=== PATIENT | female | born 1980 | race Hispanic/Latino ===

== ENCOUNTER 2019-12-12 23:54 | Emergency (ER) | payer SELFPAY ==
--- NOTE | ~2019-12-12 | CT_ITS ---
EXAMINATION: CT abdomen pelvis w con INDICATION: Epigastric and right lower quadrant pain TECHNIQUE: Computed tomographic images of the abdomen and pelvis were obtained after the administrati on of 100 cc of Omnipaque 350 intravenous contrast. The dose-length product (DLP) was 212.94 mGy-cm. Automated exposure control and iterative reconstruction technique were employed. COMPARISON: 10/13/2015 FINDINGS: The lung bases are clear. The heart size is normal. The liver, spleen, pancreas, gallbladde r, and adrenal glands are normal. The kidneys are unremarkable. No pathologically enlarged abdominal or pelvic lymph nodes are identified. There is no free intraperitoneal gas or evidence of bowel obstr uction. The appendix is normal. A large volume of colonic stool is present. IMPRESSION: 1. No CT correlate for the patient's symptoms. Reviewed, dictated and finalized at location A.
[2019-12-12 23:59] VITALS: BP 140/86; PULSE 98; RESP 18; TEMP 37.6; O2SAT 98
--- NOTE | 2019-12-13 00:40 | ED.ABDPAIN ---
HPI - Abdominal Pain General Chief Complaint: Weakness Stated Complaint: weak Time Seen by Provider: 12/13/19 00:05 Source: patient Mode of arrival: ambulatory Limitations: language barrier ([employer] terminal operations manager service used) History of Present Illness HPI narrative: Patient is a 39-year-old female who presents to the emergency department with complaint of generalized weakness and abdominal pain. Patient states she has been feeling weak intermittently for the past week. Patient reports feelings of dizziness. Patient saw her primary care physician yesterday morning and was told her symptoms were due to allergies and she was put on allergy medication. Patient now reports development of epigastric and right lower abdominal pain, burning sensation in her back, and dysuria this been going on for approximately 6 hours. Patient reports nausea but denies any vomiting or diarrhea. She denies any fever, cough, or shortness of breath. MD elicited complaint: abdominal pain Onset (ago): hour(s) Pain Consistency: constant Location: epigastric and RLQ Associated symptoms: nausea and dysuria Related Data Allergies Allergy/AdvReac Type Severity Reaction Status Date / Time No Known Allergies Allergy Verified 12/13/19 04:40 Review of Systems Review of Systems: All systems reviewed & are unremarkable except as noted in HPI and below Constitutional: Constitutional: Denies fever(s) and Reports weakness Respiratory: Respiratory: Denies cough and Denies dyspnea Gastrointestinal: Gastrointestinal: Reports abdominal pain, Denies constipation, Denies diarrhea, Reports nausea and Denies vomiting Genitourinary: Genitourinary: Denies hematuria and Reports dysuria Musculoskeletal: Musculoskeletal: Reports back pain Neurologic: Reports dizziness and Reports weakness PMFSH Past Medical History Medical History (Updated 12/13/19 @ 04:38 by Saira Smith MD) GERD (gastroesophageal reflux disease) Surgical History Surgical History (Updated 12/13/19 @ 00:45 by Saira Smith MD) No history of previous surgery Social History Social History (Updated 12/13/19 @ 00:46 by Saira mSith MD) Smoking status: Never smoker Exam Const: General: cooperative, no acute distress and alert Nutritional Appearance: well nourished Orientation/consciousness: patient oriented x3 Limitations: no limitations HENMT: Mouth: Yes lip normal and Yes moist mucous membranes Resp: Effort & Inspection: normal respiratory effort Auscultation: clear to auscultation bilaterally Cardio: Rate: regular rate Rhythm: regular rhythm GI: GI Palp: Yes Soft to palpation and Yes Tenderness to palpation present (GI) (Diffuse, greatest in epigastric and right lower quadrant) Auscultation: normal bowel sounds : General: Yes CVA tenderness bilateral Skin: General skin exam: normal color Neuro: General: patient oriented x3 Cognition (Neuro): normal cognition Speech: normal speech Extrem: General: normal to inspection, full ROM and no clubbing, cyanosis or edema Psych: Mental Status: mental status grossly normal Affect: Blunted affect present Attitude: cooperative Course Course Emergency Course: Patient did not have much relief after Toradol and Zofran. She did get significant more relief with GI cocktail. CT scan and labs unremarkable for any acute findings. Will prescribe GI medications and advised follow-up with primary care. Vital Signs Vital signs: Vital Signs Temperature 99.7 F H 12/12/19 23:59 Pulse Rate 98 12/12/19 23:59 Respiratory Rate 18 12/12/19 23:59 Blood Pressure 140/86 12/12/19 23:59 Pulse Oximetry 98 12/12/19 23:59 Temperature 99.7 F H 12/12/19 23:59 Pulse Rate 98 12/12/19 23:59 Respiratory Rate 18 12/12/19 23:59 Blood Pressure 140/86 12/12/19 23:59 Pulse Oximetry 98 12/12/19 23:59 MDM - Abdominal Pain Medical Records Attestation: I reviewed the patient's medical records. Lab Da
[2019-12-13] MEDS: ONDANSETRON INJ 4 MG/2 ML VIAL IV PUSH (00:57)
[2019-12-13] MEDS: KETOROLAC 30 MG/ML VIAL (*BKC) IV PUSH (00:58)
[2019-12-13 01:02] LABS: Basophils Absolute Auto 0.1 K/mm3 (0.0-0.1); Eosinophils Absolute Auto 0.1 K/mm3 (0-0.3); Eosinophils Percent Auto 1.3 % (0-4.4); Hematocrit 43.9 % (37.0-47.0); Hemoglobin 13.8 g/dL (12.0-15.0); Immature Granulocyte Absolute 0.03 K/mm3 (0.00-0.031); Immature Granulocyte Percent A 0.3 % (0-0.5); Lymphocytes Absolute Auto 1.77 K/mm3 (0.9-3.2); Lymphocytes Percent Auto 17.5 % (18.3-44.2); Mean Corpuscular HGB Conc 31.4 g/dl (32-36); Mean Corpuscular Hemoglobin 29.1 pg (26-34); Mean Corpuscular Volume 92.4 fl (80-100); Monocytes Absolute Auto 0.8 K/mm3 (0.1-0.6); Monocytes Percent Auto 7.8 % (2.6-8.5); Neutrophils Absolute Auto 7.3 K/mm3 (1.3-6.7); Neutrophils Percent Auto 72.1 % (45.5-73.1); Platelet Count Result 247 k/mm3 (150-375); Red Blood Count 4.75 M/mm3 (4.2-5.4); Red Cell Distribution Width 12.9 % (11.5-14.5); White Blood Count 10.1 K/mm3 (4.5-10.0)
[2019-12-13 01:17] LABS: Alanine Aminotransferase 120 U/L (4-35); Albumin Level 4.2 g/dL (3.5-5.1); Alkaline Phosphatase 69 U/L (38-126); Aspartate Amino Transferase 99 U/L (14-36); Bilirubin,Total 0.4 mg/dL (0.2-1.3); Blood Urea Nitrogen 9 mg/dL (7-17); Carbon Dioxide 24 mmol/L (22-30); Chloride 102 mmol/L (98-107); Estimated Glomerular Filt Rate > 60; Glucose 105 mg/dL (65-105); Lipase 106 U/L (23-300); Potassium 3.5 mmol/L (3.4-5.0); Sodium 134 mmol/L (137-145)
[2019-12-13] MEDS: LACTATED RINGERS 1,000 ML 999 ML IV CONT (03:24)
[2019-12-13 04:04] LABS: Add Urine Microscopic? YES; Appearance Urine Clear (Clear); Bacteria Urine Trace /hpf; Bilirubin Urine Negative (Negative); Blood Urine 1+ (Negative); Color Urine Colorless (Yellow); Glucose Urine UA Negative (Negative); Ketones Urine Negative (Negative); Leukocyte Esterase Ur Negative LEU/UL (Negative); Mucus Urine Rare /lpf; Nitrate Urine Negative (Negative); Protein Urine Negative (Negative); Squamous Epithelial Cell Urine Moderate /hpf (Few); Urobilinogen Urine Negative mg/dL (<2.0); WBC Urine 0-3 /hpf
[2019-12-13 04:51] VITALS: BP 139/91; PULSE 78; RESP 16; O2SAT 98
[2019-12-13 05:03] VITALS: BP 139/91; PULSE 78; RESP 16; TEMP 37.2; O2SAT 98
== END 2019-12-13 04:45 | disposition home or self-care (01) ==
PROVIDERS: Emergency Provider Emergency Medicine
DX: R10.84 Generalized abdominal pain (principal); K21.9 Gastro-esophageal reflux disease without esophagitis
CPT/HCPCS: 36415; 74177; 80053; 81001; 81025; 83690; 85025; 96361; 96374; 96375; 99284; A9270; J1885; J2405; J7120; Q9967

== ENCOUNTER 2019-12-17 | Emergency (ER) | payer SELFPAY ==
--- NOTE | ~2019-12-17 | XR_ITS ---
EXAMINATION: XR chest 2V DATE: 12/17/2019 00:49 INDICATION: Cough. TECHNIQUE: Frontal and lateral views of the chest were obtained. COMPARISON: CT abdomen and pelvis 12/13/2019 FINDINGS: The chest demonstrates clear lungs without pneumonia, pleural effusion, or pneumothorax. Th e heart size is normal. IMPRESSION: 1. No acute cardiopulmonary disease. Reviewed, dictated and finalized at location A.
[2019-12-17 00:03] VITALS: BP 137/91; PULSE 109; RESP 25; TEMP 37.3; O2SAT 100
--- NOTE | 2019-12-17 00:22 | ED.ABDPAIN ---
HPI - Abdominal Pain General Chief Complaint: Abdominal Pain Stated Complaint: abd pain Time Seen by Provider: 12/17/19 00:21 History of Present Illness HPI narrative: Pt c/o epigastric pain, 6/10, aching, non radiating, started 1 week ago. Pt was seen here 4 days ago for the same complaints, had labs and ct scan of abd/pelvis, which showed nothing acute, labs within normal limits. Quality: cramping and aching Associated symptoms: denies other symptoms Related Data Allergies Allergy/AdvReac Type Severity Reaction Status Date / Time No Known Allergies Allergy Verified 12/13/19 04:40 Review of Systems Review of Systems: All systems reviewed & are unremarkable except as noted in HPI and below Constitutional: Constitutional: Denies body ache(s), Denies chills, Denies excessive sweating, Denies fatigue, Denies fever(s), Denies headache(s), Denies lethargy, Denies malaise, Denies weakness and Denies weight loss Eyes: Eyes: Denies blurry vision, Denies change in vision and Denies loss of vision ENT: Denies dizziness, Denies ear discharge, Denies headache(s), Denies lip swelling, Denies epistaxis, Denies nasal congestion, Denies neck pain, Denies throat swelling and Denies tongue swelling Cardiovascular: Cardiovascular: Denies chest pain, Denies chest pain at rest, Denies chest pain with activity, Denies diaphoresis, Denies rapid heart rate, Denies edema, Denies irregular heart rhythm, Denies lightheadedness, Denies palpitations, Denies dyspnea and Denies dyspnea on exertion Respiratory: Respiratory: Denies chest congestion, Denies cough, Denies hemoptysis, Denies dyspnea and Denies dyspnea on exertion Gastrointestinal: Gastrointestinal: Denies melena, Denies hematochezia, Denies diarrhea, Denies nausea, Denies vomiting and Denies hematemesis Musculoskeletal: Musculoskeletal: Denies abnormal gait, Denies deformity, Denies joint swelling, Denies limited range of motion, Denies neck pain and Denies numbness Neurologic: Denies Abnormal speech present, Denies abnormal gait, Denies confusion, Denies dizziness, Denies headache(s), Denies focal weakness, Denies loss of vision, Denies numbness, Denies Other visual disturbances, Denies Sensory deficit (Neuro) and Denies weakness Psychiatric: Psychiatric: Denies confusion, Denies depression, Denies auditory hallucinations, Denies homicidal ideation and Denies suicidal ideation Endocrine: Endocrine: Denies cold intolerance, Denies excessive sweating, Denies fatigue, Denies heat intolerance and Denies palpitations Hematologic/Lymphatic: Hematologic/Lymphatic: Denies easy bleeding and Denies easy bruising Allergic/Immunologic: Allergic/Immunologic: Denies lip swelling, Denies throat swelling and Denies tongue swelling PMFSH Past Medical History Medical History (Updated 12/17/19 @ 02:21 by James Saucedo MD) GERD (gastroesophageal reflux disease) Surgical History Surgical History (Updated 12/13/19 @ 00:45 by Saira Smith MD) No history of previous surgery Social History Social History (Updated 12/13/19 @ 00:46 by Saira Smith MD) Smoking status: Never smoker Gender identity (if verbalized by the patient): Female Exam Const: General: cooperative, healthy appearing, comfortable, no acute distress, well developed, alert and awake; No confusion Orientation/consciousness: oriented to person, oriented to place, oriented to time, patient oriented x3 and No confusion Limitations: no limitations HENMT: Head: normal to inspection, normocephalic and atraumatic Ears: hearing grossly normal bilaterally, TM normal on the right and TM normal on the left General nose exam: Normal external nose present, Normal nares present and No nasal discharge present Face and sinus: normal facial exam Mouth: Yes Normal oral and palatal mucosa present, Yes lip normal, Yes tongue normal and Yes oropharynx normal Throat: posterior oropharynx normal, tonsils normal and uvula midline Eyes:
--- NOTE | 2019-12-17 00:35 | ECG_ITS ---
Measurements Intervals [place] Rate: 82 P: 63 [place]: 157 QRS: 39 QRSD: 88 T: 35 QT: 379 QTc: 444 Interpretive Statements SINUS RHYTHM BASELINE WANDER- AVF NORMAL ECG Electronically Signed On 12-17-2019 7:21:14 CDT by Tevin Garsia D.O.
[2019-12-17 01:10] LABS: Basophils Absolute Auto 0.1 K/mm3 (0.0-0.1); Basophils Percent Auto 0.8 % (0.2-1.2); Eosinophils Absolute Auto 0.1 K/mm3 (0-0.3); Eosinophils Percent Auto 1.6 % (0-4.4); Hematocrit 39.4 % (37.0-47.0); Hemoglobin 13.9 g/dL (12.0-15.0); Immature Granulocyte Absolute 0.02 K/mm3 (0.00-0.031); Immature Granulocyte Percent A 0.3 % (0-0.5); Lymphocytes Absolute Auto 2.15 K/mm3 (0.9-3.2); Lymphocytes Percent Auto 28.7 % (18.3-44.2); Mean Corpuscular HGB Conc 35.3 g/dl (32-36); Mean Corpuscular Volume 82.1 fl (80-100); Mean Platelet Volume 10.8 fl (7.4-10.4); Monocytes Absolute Auto 0.7 K/mm3 (0.1-0.6); Monocytes Percent Auto 8.9 % (2.6-8.5); Neutrophils Absolute Auto 4.5 K/mm3 (1.3-6.7); Neutrophils Percent Auto 59.7 % (45.5-73.1); Platelet Count Result 293 k/mm3 (150-375); Red Cell Distribution Width 12.3 % (11.5-14.5); White Blood Count 7.5 K/mm3 (4.5-10.0)
[2019-12-17 01:33] LABS: Add Urine Microscopic? YES; Appearance Urine Cloudy (Clear); Bacteria Urine Trace /hpf; Bilirubin Urine Negative (Negative); Blood Urine Negative (Negative); Color Urine Yellow (Yellow); Glucose Urine UA Negative (Negative); Ketones Urine 1+ mg/dL (Negative); Leukocyte Esterase Ur Negative LEU/UL (Negative); Mucus Urine Moderate /lpf; Nitrate Urine Negative (Negative); Protein Urine Negative (Negative); Specific Grav Ur 1.013 (1.001-1.035); Squamous Epithelial Cell Urine Many /hpf (Few); Urobilinogen Urine Negative mg/dL (<2.0); WBC Urine 0-3 /hpf
[2019-12-17 01:42] LABS: Alanine Aminotransferase 108 U/L (4-35); Albumin Level 4.5 g/dL (3.5-5.1); Alkaline Phosphatase 66 U/L (38-126); Aspartate Amino Transferase 51 U/L (14-36); Bilirubin,Total 0.6 mg/dL (0.2-1.3); Blood Urea Nitrogen 9 mg/dL (7-17); Calcium 9.1 mg/dL (8.4-10.2); Carbon Dioxide 20 mmol/L (22-30); Chloride 104 mmol/L (98-107); Estimated Glomerular Filt Rate > 60; Glucose 98 mg/dL (65-105); Lipase 76 U/L (23-300); Potassium 3.3 mmol/L (3.4-5.0); Sodium 134 mmol/L (137-145); Troponin I < 0.012 ng/mL (0.000-0.034)
[2019-12-17] MEDS: BELLADONNA ALK/PHENOB ELIX 10 ML, MAG HYDROX/ALUMINUM HYD/SIMETH 30 ML, LIDOCAINE HCL 2... PO (01:47)
[2019-12-17 03:03] VITALS: BP 131/92; PULSE 81; RESP 17; O2SAT 98
== END 2019-12-17 03:05 | disposition home or self-care (01) ==
PROVIDERS: Emergency Provider Emergency Medicine
DX: K29.00 Acute gastritis without bleeding (principal); K21.9 Gastro-esophageal reflux disease without esophagitis
CPT/HCPCS: 36415; 71046; 80053; 81001; 81025; 83690; 84484; 85025; 93005; 99284; A9270

== ENCOUNTER 2020-08-09 10:04 | Emergency (ER) | payer SELFPAY ==
[2020-08-09] VITALS (26 sets, daily range): BP systolic 124–164; BP diastolic 84–102; PULSE 64–112; RESP 9–33; TEMP 36.7; O2SAT 98–100
--- NOTE | ~2020-08-09 | XR_ITS ---
EXAMINATION: XR chest 1V portable EXAM DATE: 08/09/2020 11:07 INDICATION: Cold symptoms, chest pain. Cold symptoms. TECHNIQUE: Portable AP frontal chest x-ray was obtained. Comparison is made to prior examination from 12/17/2019. FINDINGS: The lungs are clear. There are no pleural effusions. The cardiomediastinal silhouette is within normal limits. There is no pneumothorax suspected. The bones and soft tissues are unremarkab le. IMPRESSION: No acute cardiopulmonary findings. Reviewed, dictated and finalized at location B. NSED PSYCHOLOGIST DIRECTOR
--- NOTE | 2020-08-09 10:21 | ECG_ITS ---
Measurements Intervals [place] Rate: 71 P: 63 [place]: 146 QRS: 57 QRSD: 93 T: 49 QT: 395 QTc: 431 Interpretive Statements SINUS RHYTHM BASELINE WANDER- V2 NORMAL ECG Electronically Signed On 08-09-2020 10:51:07 SOCIAL PROBLEMS SPECIALIST by Tevin Garsia D.O.
--- NOTE | 2020-08-09 10:32 | ED.CHESTPAIN ---
HPI - Chest Pain General Chief Complaint: Chest Pain Stated Complaint: FEVER,N/V, FEET NUMB Time Seen by Provider: 08/09/20 10:15 Source: patient Mode of arrival: ambulatory Limitations: no limitations History of Present Illness HPI narrative: This is a 40 year old female that presents to the ER for cold symptoms x 2 days. Reports cough, sore throat, headache, chest pain and shortness of breath. Denies fever. Related Data Allergies Allergy/AdvReac Type Severity Reaction Status Date / Time Penicillins Allergy Swelling Verified 08/09/20 10:25 of Lip/Tongue/Throat Review of Systems Review of Systems: Narrative: CONSTITUTIONAL: Denies fever ENT: Reports rhinorrhea, congestion, sore throat CARDIOVASCULAR: Reports chest pain. Denies edema. RESPIRATORY: Reports cough and dyspnea. GASTROINTESTINAL: Reports nausea All systems reviewed & are unremarkable except as noted in HPI and below PMFSH Past Medical History Medical History (Updated 08/09/20 @ 14:05 by Hue Nj PA-C) GERD (gastroesophageal reflux disease) Surgical History Surgical History (Updated 12/13/19 @ 00:45 by Saira Smith MD) No history of previous surgery Social History Social History (Updated 12/13/19 @ 00:46 by Saira Smith MD) Smoking status: Never smoker Gender identity (if verbalized by the patient): Female Exam Narrative: Exam Narrative: GENERAL: Well-appearing, well-nourished, and in no acute distress. HEAD: Normocephalic, atraumatic. EYES: PERRLA and EOMI. ENT: Nares clear, no rhinorrhea or epistaxis. Mucous membranes moist. Oropharynx without tonsillar hypertrophy exudate or other lesions. Bilateral TMs pearly bains non-bulging NECK: Supple. No adenopathy or masses. CHEST: Clear to auscultation. No respiratory distress. No wheezes rales or rhonchi HEART: Regular rate and rhythm. No murmur heard. Normal peripheral pulses. ABDOMEN: Soft, nontender, nondistended, normal active bowel sounds. EXTREMITIES: Normal range of motion. No edema. SKIN: Warm, dry, no rash. NEURO: No focal deficits. Alert and oriented x3. PSYCH: Normal mood and affect Course Vital Signs Vital signs: Vital Signs Pulse Oximetry 100 08/09/20 10:14 Temperature 98.0 F 12/21/20 10:22 Pulse Rate 69 08/09/20 13:15 Respiratory Rate 23 H 08/09/20 13:15 Blood Pressure 124/89 08/09/20 12:17 Pulse Oximetry 100 08/09/20 13:15 MDM - Chest Pain MDM Narrative Medical decision making narrative: Patient presents the emergency department for cold symptoms x2 days. She is afebrile and nontoxic-appearing. Blood pressure elevated on arrival, this normalized without intervention. Oxygen saturation is remained normal on room air. CBC and metabolic panel without concerning findings. Baseline and 3-hour troponin are negative. D-dimer is negative. Influenza screen was negative. SARS-CoV-2 was sent. Bedside test is negative. Chest x-ray without acute findings. EKG without concerning changes. Patient was updated on case findings. She was instructed on care of viral syndrome. She is to follow-up with primary care doctor. She was given warnings to return to the ER Lab Data Attestation: I reviewed the patient's lab results. Result diagrams: 08/09/20 10:34 08/09/20 10:34 Labs: Lab Results 08/09/20 08/09/20 08/09/20 Range/Units 10:34 10:34 10:34 WBC 3.6 L (4.5-10.0) K/mm3 RBC 4.62 (4.2-5.4) M/mm3 Hgb 13.1 (12.0-15.0) g/dL Hct 37.9 (37.0-47.0) % MCV 82.0 (80-100) fl MCH 28.4 (26-34) pg MCHC 34.6 (32-36) g/dl RDW 12.9 (11.5-14.5) % Plt Count 301 (150-375) k/mm3 MPV 10.8 H (7.4-10.4) fl Immature Gran % (Auto) 0.3 (0-0.5) % Neut % (Auto) 44.4 L (45.5-73.1) % Lymph % (Auto) 40.8 (18.3-44.2) % [place] % (Auto) 11.2 H (2.6-8.5) % Eos % (Auto) 2.5 (0-4.4) % Baso % (Auto) 0.8 (0.2-1.2) % Lymph # (Auto) 1.46
[2020-08-09 10:42] LABS: Basophils Percent Auto 0.8 % (0.2-1.2); Eosinophils Absolute Auto 0.1 K/mm3 (0-0.3); Eosinophils Percent Auto 2.5 % (0-4.4); Hematocrit 37.9 % (37.0-47.0); Hemoglobin 13.1 g/dL (12.0-15.0); Immature Granulocyte Absolute 0.01 K/mm3 (0.00-0.031); Immature Granulocyte Percent A 0.3 % (0-0.5); Lymphocytes Absolute Auto 1.46 K/mm3 (0.9-3.2); Lymphocytes Percent Auto 40.8 % (18.3-44.2); Mean Corpuscular HGB Conc 34.6 g/dl (32-36); Mean Corpuscular Hemoglobin 28.4 pg (26-34); Mean Platelet Volume 10.8 fl (7.4-10.4); Monocytes Absolute Auto 0.4 K/mm3 (0.1-0.6); Monocytes Percent Auto 11.2 % (2.6-8.5); Neutrophils Absolute Auto 1.6 K/mm3 (1.3-6.7); Neutrophils Percent Auto 44.4 % (45.5-73.1); Platelet Count Result 301 k/mm3 (150-375); Red Blood Count 4.62 M/mm3 (4.2-5.4); Red Cell Distribution Width 12.9 % (11.5-14.5); White Blood Count 3.6 K/mm3 (4.5-10.0)
[2020-08-09 10:49] LABS: Prothrombin Time 13.8 Seconds (11.1-14.7)
[2020-08-09 10:50] LABS: Partial Thromboplastin Time 34.9 SECONDS (22.3-36.8)
[2020-08-09 10:56] LABS: Anion Gap 7 mmol/L (8-16); Blood Urea Nitrogen 5 mg/dL (7-17); Calcium 8.6 mg/dL (8.4-10.2); Carbon Dioxide 28 mmol/L (22-30); Chloride 104 mmol/L (98-107); Estimated CRCL calculation 84 ml/min; Estimated Glomerular Filt Rate > 60; Glucose 95 mg/dL (65-105); Potassium 3.5 mmol/L (3.4-5.0); Sodium 139 mmol/L (137-145)
[2020-08-09 10:57] LABS: Hypochromasia 2+ (NORMAL); Platelet Estimate Adequate (Adequate)
[2020-08-09] MEDS: SODIUM CHLORIDE 0.9% IV 1,000 ML 999 ML IV CONT (10:57)
[2020-08-09 11:07] LABS: Troponin I < 0.012 ng/mL (0.000-0.034)
--- NOTE | 2020-08-09 11:16 | PC.NURSE ---
received report from Fabiola HERRERA. covid swab and influenza swab done. all explained to patient. IVF continue. has call light in reach.
[2020-08-09 11:26] LABS: Alanine Aminotransferase 15 U/L (4-35); Albumin Level 4.1 g/dL (3.5-5.1); Alkaline Phosphatase 64 U/L (38-126); Aspartate Amino Transferase 31 U/L (14-36); Bilirubin,Total 0.4 mg/dL (0.2-1.3); Lipase 58 U/L (23-300)
[2020-08-09 11:30] LABS: D Dimer 0.27 ug/mL (<0.48); Lactate Dehydrogenase 276 U/L (313-618)
[2020-08-09 12:15] LABS: Ferritin 9.23 ng/mL (6.24-137)
--- NOTE | 2020-08-09 12:20 | PC.NURSE ---
patient with light on. disconnected from monitors to ambulate to restroom. back in room. bedside urine preg done and charted. waiting for further orders vs dispositon from provider.
[2020-08-09 13:48] LABS: Troponin I < 0.012 ng/mL (0.000-0.034)
[2020-08-09 22:00] LABS: SARS-CoV-2 RNA PCR Positive
== END 2020-08-09 14:36 | disposition home or self-care (01) ==
PROVIDERS: Physician Assistant; Emergency Provider Emergency Medicine; PCP Registered Nurse
DX: U07.1 COVID-19 (principal); K21.9 Gastro-esophageal reflux disease without esophagitis
CPT/HCPCS: 36415; 71045; 80048; 80076; 81025; 82728; 83615; 83690; 84484; 85025; 85380; 85610; 85730; 87635; 87804; 93005; 96361; 96365; 99284; C9803; J0131; J7030; U0003

== ENCOUNTER 2020-08-19 15:14 | Emergency (ER) | payer OTHER, SELFPAY ==
--- NOTE | ~2020-08-19 | CT_ITS ---
EXAMINATION: CTA chest PE protocol DATE: 08/19/2020 17:29 INDICATION: Chest pain and shortness of breath, COVID 19 TECHNIQUE: Computed tomography angiography (CTA) of the chest was performed with 100 mL Omnipaque-350 intravenous contrast timed to evaluate the pulmonary arteries. Coronal maximum intensity projection 3D-reconstructions were created by the technologist. The dose-length product (DLP) was 135.83 mGy-cm. Automated exposure control and iterative reconstruction technique were employed. COMPARISON: None. FINDINGS: The pulmonary arteries are well-opacified. No pulmonary embolism is identified. No patholog ically enlarged thoracic lymph nodes are identified. The heart size is normal. Respiratory motion art ifact slightly limits evaluation of the lung parenchyma. No focal airspace opacities are identified. There is no pleural effusion or pneumothorax. IMPRESSION: 1. No pulmonary embolism or acute cardiopulmonary abnormality. Reviewed, dictated and finalized at location A. AT PROOFREADER
[2020-08-19 15:25] VITALS: BP 149/96; PULSE 100; RESP 24; TEMP 36.7; O2SAT 98
--- NOTE | 2020-08-19 15:31 | ECG_ITS ---
Measurements Intervals [place] Rate: 83 P: 65 IN: 143 QRS: 2 QRSD: 85 T: 47 QT: 354 QTc: 418 Interpretive Statements SINUS RHYTHM BORDERLINE ST ABNORMALITY- ANTEROLAT/INF LEADS BASELINE ARTIFACT- II, AVR, AVF, V4-V5 BORDERLINE ECG Electronically Signed On 08-19-2020 16:43:19 AGRICULTURAL SCIENTIST by Tevin Garsia D.O.
[2020-08-19] MEDS: KETOROLAC 30 MG/ML VIAL (*BKC) IV PUSH (16:18)
[2020-08-19] MEDS: SODIUM CHLORIDE 0.9% IV 1,000 ML 999 ML IV CONT (16:18)
[2020-08-19 16:23] LABS: Basophils Absolute Auto 0.1 K/mm3 (0.0-0.1); Basophils Percent Auto 0.8 % (0.2-1.2); Eosinophils Absolute Auto 0.1 K/mm3 (0-0.3); Eosinophils Percent Auto 1.3 % (0-4.4); Hematocrit 35.7 % (37.0-47.0); Hemoglobin 12.5 g/dL (12.0-15.0); Immature Granulocyte Absolute 0.01 K/mm3 (0.00-0.031); Immature Granulocyte Percent A 0.1 % (0-0.5); Lymphocytes Absolute Auto 1.99 K/mm3 (0.9-3.2); Lymphocytes Percent Auto 25.5 % (18.3-44.2); Mean Corpuscular Hemoglobin 28.9 pg (26-34); Mean Corpuscular Volume 82.4 fl (80-100); Mean Platelet Volume 10.6 fl (7.4-10.4); Monocytes Absolute Auto 0.7 K/mm3 (0.1-0.6); Neutrophils Absolute Auto 4.9 K/mm3 (1.3-6.7); Neutrophils Percent Auto 63.3 % (45.5-73.1); Platelet Count Result 315 k/mm3 (150-375); Red Blood Count 4.33 M/mm3 (4.2-5.4); Red Cell Distribution Width 12.8 % (11.5-14.5); White Blood Count 7.8 K/mm3 (4.5-10.0)
[2020-08-19 16:36] LABS: Anion Gap 8 mmol/L (8-16); Blood Urea Nitrogen 9 mg/dL (7-17); Calcium 8.8 mg/dL (8.4-10.2); Carbon Dioxide 25 mmol/L (22-30); Chloride 103 mmol/L (98-107); Estimated CRCL calculation 75 ml/min; Estimated Glomerular Filt Rate > 60; Glucose 96 mg/dL (65-105); Potassium 3.9 mmol/L (3.4-5.0); Sodium 136 mmol/L (137-145)
[2020-08-19 16:41] VITALS: BP 123/84; PULSE 69; RESP 18; O2SAT 100
--- NOTE | 2020-08-19 16:41 | PC.NURSE ---
Patient asked of urine sample at this time, patient unable to go earlier due to chest pain.
[2020-08-19 17:08] LABS: Add Urine Microscopic? YES; Appearance Urine Clear (Clear); Bacteria Urine Trace /hpf; Bilirubin Urine Negative (Negative); Blood Urine Negative (Negative); Color Urine Straw (Yellow); Glucose Urine UA Negative (Negative); Ketones Urine Trace mg/dL (Negative); Leukocyte Esterase Ur Negative LEU/UL (Negative); Nitrate Urine Negative (Negative); Protein Urine Negative (Negative); RBC Urine 0-2 /hpf (0-2); Squamous Epithelial Cell Urine Few /hpf (Few); Urobilinogen Urine Negative mg/dL (<2.0); WBC Urine 0-3 /hpf
--- NOTE | 2020-08-19 17:55 | ED.GENADULT ---
HPI - General Adult General Chief complaint: Upper Respiratory Infection Stated complaint: covid symptoms Time Seen by Provider: 08/19/20 15:25 History of Present Illness HPI narrative: Patient is a 40-year-old Greek-speaking female who presents ER with multitude of complaints. History taken with the [employer] bilingual interpreter. Patient diagnosed with Covid on 08/09. Patient has been having chest pain and shortness of breath over the last couple of days. Pain is worse with deep breath. She has tried ibuprofen without relief. She continues to feel fatigue and body aches. She feels like she also has some lower extremity edema. No hemoptysis. Due to symptoms getting worse she feels like she needs further evaluation. Most of her chest pain is on the left side. Related Data Allergies Allergy/AdvReac Type Severity Reaction Status Date / Time Penicillins Allergy Swelling Verified 08/19/20 15:38 of Lip/Tongue/Throat Review of Systems Review of Systems: All systems reviewed & are unremarkable except as noted in HPI and below Constitutional: Constitutional: Denies chills, Reports fatigue, Reports fever(s) and Reports weakness ENT: Denies nasal congestion and Denies sore throat Cardiovascular: Cardiovascular: Reports chest pain, Denies rapid heart rate and Denies radiating jaw, neck or arm pain Respiratory: Respiratory: Reports cough, Reports dyspnea and Denies wheezing Gastrointestinal: Gastrointestinal: Denies abdominal pain, Denies nausea and Denies vomiting Genitourinary: Genitourinary: Denies nocturia, Reports dysuria and Denies flank pain PMFSH Past Medical History Medical History (Updated 08/19/20 @ 18:04 by Brian Jordan MD) GERD (gastroesophageal reflux disease) Surgical History Surgical History (Updated 12/13/19 @ 00:45 by Saira Smith MD) No history of previous surgery Social History Social History (Updated 12/13/19 @ 00:46 by Saira Smith MD) Smoking status: Never smoker Gender identity (if verbalized by the patient): Female Exam Narrative: Exam Narrative: GENERAL: Well-appearing, well-nourished, and in no acute distress. HEAD: Normocephalic, atraumatic. ENT: Mucous membranes moist. Normal posterior oropharynx. CHEST: Clear to auscultation. No respiratory distress. HEART: Regular rate and rhythm. Normal peripheral pulses. ABDOMEN: Soft, nontender, nondistended. EXTREMITIES: Normal range of motion. No edema. SKIN: Warm, dry, no rash. NEURO: Alert and oriented x3. PSYCH: Normal mood and affect. Course Course Emergency Course: Unremarkable evaluation. No PE or pneumonia. Will treat with scheduled anti-inflammatories for pleurisy. Vital Signs Vital signs: Vital Signs Temperature 98.0 F 08/19/20 15:25 Pulse Rate 100 08/19/20 15:25 Respiratory Rate 24 H 08/19/20 15:25 Blood Pressure 149/96 H 08/19/20 15:25 Pulse Oximetry 98 08/19/20 15:25 Temperature 98.0 F 08/19/20 15:25 Pulse Rate 69 08/19/20 16:41 Respiratory Rate 18 08/19/20 16:41 Blood Pressure 123/84 08/19/20 16:41 Pulse Oximetry 100 08/19/20 16:41 Medical Decision Making Vital Signs Vital Signs: Vital Signs Temperature 98.0 F 08/19/20 15:25 Pulse Rate 100 08/19/20 15:25 Respiratory Rate 24 H 08/19/20 15:25 Blood Pressure 149/96 H 08/19/20 15:25 Pulse Oximetry 98 08/19/20 15:25 Temperature 98.0 F 08/19/20 15:25 Pulse Rate 69 08/19/20 16:41 Respiratory Rate 18 08/19/20 16:41 Blood Pressure 123/84 08/19/20 16:41 Pulse Oximetry 100 08/19/20 16:41 Lab Data Result diagrams: 08/19/20 16:17 08/19/20 16:17 Labs: Lab Results 08/19/20 08/19/20 08/19/20 Range/Units 16:17 16:17 16:56 WBC 7.8 (4.5-10.0) K/mm3 RBC 4.33 (4.2-5.4) M/mm3 Hgb 12.5 (12.0-15.0) g/dL Hct 35.7 L (37.0-47.0) % MCV 82.4 (80-100) fl MCH 28.9 (26-34) pg MCHC 35.0 (32-36) g/dl RDW 12.8
[2020-08-19 18:16] VITALS: BP 114/87; PULSE 88; RESP 18; O2SAT 99
== END 2020-08-19 18:18 | disposition home or self-care (01) ==
PROVIDERS: Emergency Provider Emergency Medicine
DX: U07.1 COVID-19 (principal); R09.1 Pleurisy; K21.9 Gastro-esophageal reflux disease without esophagitis
CPT/HCPCS: 36415; 71275; 80048; 81001; 81025; 85025; 93005; 96361; 96374; 99284; J1885; J7030; Q9967

== ENCOUNTER 2020-09-07 07:35 | Outpatient (CLI) | payer SELFPAY ==
--- NOTE | ~2020-09-07 | XR_ITS ---
EXAMINATION: XR abdomen/kub 1V EXAM DATE: 09/07/2020 08:26 INDICATION: Abdominal pain, constipation. TECHNIQUE: Frontal projection of the upper abdomen, frontal projection lower abdomen/pelvis for inter pretation. There is no prior study for comparison. FINDINGS: There is moderate to large amount of ascending and transverse colonic stool. No small bow el dilation, nonobstructive bowel gas pattern. There are no suspicious calcifications identified. There is no organomegaly suspected. The bones are unremarkable. IMPRESSION: Moderate to large amount of ascending and transverse colonic stool. Reviewed, dictated and finalized at location A. RRING TECHNICIAN IMPRESSION: Moderate to large amount of ascending and transverse colonic stool .
[2020-09-07 09:00] LABS: Cholesterol 204 mg/dL (0-200); HDL Direct 44 mg/dL; Triglycerides 104 mg/dL (<150)
[2020-09-07 09:10] LABS: LDL Cholesterol Direct 135 mg/dL
[2020-09-07 09:30] LABS: Total Triiodothyronine (T3) 1.18 NG/ML (0.97-1.69)
[2020-09-07 10:05] LABS: Free T4 Free Thyroxine 0.96 ng/mL (0.78-2.19); Vitamin D 25 Hydroxy 32.1 ng/mL
== END 2020-09-07 07:36 | disposition home or self-care (01) ==
PROVIDERS: PCP Nurse Practitioner; Visit Provider Nurse Practitioner
DX: R10.9 Unspecified abdominal pain (principal); K59.00 Constipation, unspecified
CPT/HCPCS: 36415; 74018; 80061; 82306; 84439; 84443; 84480